=== PATIENT | male | born 1960 | race Caucasian/White ===

== ENCOUNTER 2021-07-06 10:29 | Observation (INO) ==
[2021-07-06] MEDS ORDERED: NS 0.9% 1000 ml BAG 1,000 ML IV ONE (10:41)
[2021-07-06 10:51] LABS: ABS Eosinophils 0.1 10^3/ul (0-0.6); ABS Lymphocytes 1.7 10^3/ul (1.0-4.8); ABS Monocytes 0.5 10^3/ul (0-0.8); ABS Neutrophils 4.8 10^3/ul (1.5-7.7); Hematocrit 44 % (42-52); Lymphocyte % 24.2 %; Mean Corpuscular HGB Conc 34 g/dL (31-36); Mean Corpuscular Hemoglobin 32 pg (27-31); Mean Corpuscular Volume 95 fL (80-94); Mean Platelet Volume 8.1 fL (7.4-10.4); Platelet Count 191 10^3/uL (150-450); Red Blood Count 4.67 10^6 /uL (4.18-5.48); Red Cell Distribution Width 13 % (10-15); White Blood Count 7.2 10^3/uL (3.5-10.8)
[2021-07-06 11:00] LABS: Activated Partial Thrombo Time 32.4 seconds (26.0-38.0); INR 1.1 (0.86-1.15)
[2021-07-06 11:10] LABS: Albumin 4.3 g/dL (3.2-5.2); Albumin/Globulin Ratio 1.8 (1-3); Calcium 8.9 mg/dL (8.6-10.3); EGFR African American 124.3 (>60); EGFR Non-African American 102.7 (>60); Globulin 2.4 g/dL (2-4); HDL Cholesterol 61.5 mg/dL; Potassium 3.8 mmol/L (3.5-5.0); Total Bilirubin 0.5 mg/dL (0.2-1.0); Total Protein 6.7 g/dL (6.4-8.9)
[2021-07-06 12:13] LABS: TSH Ultra Thyroid Stim Horm 1.05 mcIU/mL (0.34-5.60)
[2021-07-06 12:21] LABS: Urine Appearance Clear; Urine Bilirubin Negative (Negative); Urine Blood Negative (Negative); Urine Color Straw; Urine Glucose Negative (Negative); Urine Ketones Negative (Negative); Urine Nitrite Negative (Negative); Urine Protein Negative (Negative); Urine Specific Gravity 1.029 (1.002-1.030); Urine Urobilinogen Negative (Negative)
[2021-07-06] MEDS ORDERED: Cyanocobalamin INJ 1,000 MCG/ML VIAL 1 ML VIAL IM ONE ×2 (13:49→18:30)
[2021-07-07 13:03] VITALS: BP 125/74
[2021-07-08] MEDS ORDERED: Pneumococcal Vac 23-Polyvalent IM ONE (09:00)
== END 2021-07-07 14:36 | disposition home or self-care (01) ==
LOC: ED 10:29 → MEDTELE 10:29 → MED 19:52 → MEDTELE 22:31
PROVIDERS: ADMIT Hospitalist; ATTEND Hospitalist

== ENCOUNTER 2022-12-10 13:13 | Observation (INO) ==
[2022-12-10 13:42] LABS: ABS Eosinophils 0.1 10^3/ul (0-0.6); ABS Lymphocytes 1.4 10^3/ul (1.0-4.8); ABS Monocytes 0.5 10^3/ul (0-0.8); ABS Neutrophils 5.2 10^3/ul (1.5-7.7); Eosinophil % 1.1 %; Hematocrit 47 % (42-52); Hemoglobin 15.9 g/dL (14.0-18.0); Lymphocyte % 19.7 %; Mean Corpuscular HGB Conc 34 g/dL (31-36); Mean Corpuscular Hemoglobin 32 pg (27-31); Mean Corpuscular Volume 95 fL (80-94); Mean Platelet Volume 8.3 fL (7.4-10.4); Nucleated Red Blood Cells % 0.1; Platelet Count 203 10^3/uL (150-450); Red Blood Count 4.94 10^6 /uL (4.18-5.48); Red Cell Distribution Width 13 % (10-15); White Blood Count 7.2 10^3/uL (3.5-10.8)
[2022-12-10 14:08] LABS: Activated Partial Thrombo Time 35.3 seconds (26.0-38.0); INR 1.12 (0.88-1.18)
[2022-12-10 14:23] LABS: Albumin/Globulin Ratio 2.1 (1-3); Calcium 10.1 mg/dL (8.6-10.3); Creatinine, Serum 0.75 mg/dL (0.67-1.17); Globulin 2.4 g/dL (2-4); HDL Cholesterol 65.7 mg/dL; Potassium 3.8 mmol/L (3.5-5.0); Total Bilirubin 0.7 mg/dL (0.2-1.0); Total Protein 7.4 g/dL (6.4-8.9); eGFR CKD-EPI 101.4 (>60)
[2022-12-11 07:11] LABS: ABS Eosinophils 0.2 10^3/ul (0-0.6); ABS Lymphocytes 0.9 10^3/ul (1.0-4.8); ABS Monocytes 0.4 10^3/ul (0-0.8); ABS Neutrophils 3.4 10^3/ul (1.5-7.7); Eosinophil % 4.3 %; Hematocrit 43 % (42-52); Hemoglobin 14.4 g/dL (14.0-18.0); Lymphocyte % 17.9 %; Mean Corpuscular HGB Conc 34 g/dL (31-36); Mean Corpuscular Hemoglobin 32 pg (27-31); Mean Corpuscular Volume 95 fL (80-94); Mean Platelet Volume 8.6 fL (7.4-10.4); Nucleated Red Blood Cells % 0.1; Platelet Count 169 10^3/uL (150-450); Red Cell Distribution Width 13 % (10-15)
[2022-12-11 07:46] LABS: Creatinine, Serum 0.71 mg/dL (0.67-1.17); eGFR CKD-EPI 103.1 (>60)
[2022-12-11 12:00] VITALS: BP 119/73
== END 2022-12-11 13:36 | disposition home or self-care (01) ==
LOC: ED 13:13 → EDHOLD 13:13 → SUATTDRO 15:57 → MEDTELE 21:53
PROVIDERS: ADMIT Internal Medicine; ATTEND Internal Medicine Hematology & Oncology